=== PATIENT | female | born 1980 | race Caucasian/White ===

== ENCOUNTER 2020-12-01 16:51 | Emergency (ER) | payer MEDICAID, SELFPAY ==
[2020-12-01 17:03] VITALS: BP 145/96; PULSE 108; TEMP 36.7; O2SAT 100
[2020-12-01 17:08] VITALS: RESP 14
--- NOTE | 2020-12-01 17:19 | W.ED.GENAD ---
Discharge Plan Disposition Patient Disposition: HOME Condition: Stable Discharge Details Clinical Impression: Sinusitis ED Provider: Joseph Owens Home Meds and New Rx's Prescriptions: New amoxicillin-pot clavulanate [Augmentin] 875-125 mg tablet 1 tab PO BID Qty: 14 RF: 0 Continued Vyvanse 50 MG capsule 50 mg PO DAILY RF: 0 Discharge Instructions Instructions: Sinusitis (ED) Additional Instructions: you can try taking over the counter allergy relief medicine as well that might help such as zyrtec and benadryl if symptoms continue in a week follow up with your primary care provider if you feel more ill, have fevers or difficulty breathing return to the emergency department Medical Decision Making 40 yo female comes in with 2 weeks of sinus pressure and irritation in his nose and ear pressure. She denies fevers, dyspnea, vision changes. She states it feels like prior sinus infections she has. She has pain with percussion over the maxillary sinuses, normal tm's and external auditory canals, eomi, perrl, no vision changes, normal neurological exam. Her symptoms seem most consistent with sinusitis and given over 10 days of symptoms will start augmentin. no findings on history or exam to suggest cavernous sinus thrombosis. Advised to f/u with pcp and return precautions given Differential Diagnosis Differential Diagnosis: sinusitis, viral uri HPI General Mode of arrival: ambulatory. Date/Time Provider Initiated Documentation: 12/01/20 17:08. Limitations to Documentation: no limitations. Information obtained by: patient. History of Present Illness 40 year old F presents to the emergency department with the chief complaint of sinus pressure, described as moderate, Quality is described as aching, and is localized to the face. Patient reports no radiation. and it has been constant. No relieving factors improve symptom(s), No exacerbating factors reported . Patient did receive the following treatments prior to arrival, none Related Data Home Medications Medication Instructions Recorded Confirmed Vyvanse 50 mg PO DAILY tab-cap 03/21/14 12/01/20 amoxicillin-pot clavulanate 1 tab PO BID #14 tab 12/01/20 [Augmentin] Previous Rx's Medication Instructions Recorded amoxicillin-pot clavulanate 1 tab PO BID #14 tab 12/01/20 [Augmentin] Allergies Allergy/AdvReac Type Severity Reaction Status Date / Time No Known Allergies Allergy Unverified 12/01/20 17:17 General Stated Complaint: GenMedical JI: 3 Review of Systems All systems reviewed & are unremarkable except as noted in HPI and below Constitutional Constitutional: Denies chills, Denies fever(s) and Denies weakness Cardiovascular Cardiovascular: Denies chest pain and Denies dyspnea Respiratory Respiratory: Denies cough and Denies dyspnea Gastrointestinal Gastrointestinal: Denies abdominal pain, Denies nausea and Denies vomiting Genitourinary Genitourinary: Denies dysuria Musculoskeletal Musculoskeletal: Denies joint swelling Integumentary/Breasts Skin/Breast: Denies rash Neurologic Neurologic: Denies weakness [facility] Surgical History (Updated 12/14/17 @ 14:36 by [employer] [place]) Ligation of fallopian tube Social History Smoking/Tobacco Use Status: Current every day Tobacco Type: cigarettes Smoking risk assessment performed?: Yes Alcohol Intake: current Alcohol Intake frequency: 0-2 drinks per day Alcohol type: hard liquor Drug use: Never Substance use type: does not use Do you feel safe at home: Yes Do you feel safe in your relationship?: Yes Exam Const General: no acute distress Orientation: alert HENMT Head: normal to inspection Ears: external ears normal General nose exam: external nose normal Mouth: moist mucous membranes Eyes General: appearance normal, both eyes and all related structures Neck Neck: normal visual inspection Resp Effort & Inspection: normal respiratory effort and able to speak in complete sentences Cardio Rate: regular rate Skin General skin exam: no rashes or lesions noted Neuro General: patient alert and patient oriented x3 Extrem General: normal to inspection Psych Mental Status: mental status grossly normal Course Vital Signs Vital signs: Vital Signs Temperature 36.7 C 12/01/20 17:03 Pulse 108 H 12/01/20 17:03 Blood Pressure 145/96 H 12/01/20 17:03 Pulse Oximetry 100 12/01/20 17:03 Temperature 36.7 C 12/01/20 17:03 Temperature Source Tympanic 12/01/20 17:03 Pulse 108 H 12/01/20 17:03 Respiratory Rate 14 12/01/20 17:08 Respiratory Effort Non-Labored 12/01/20 17:08 Respiratory Depth Normal 12/01/20 17:08 Respiratory Pattern Normal 12/01/20 17:08 Blood Pressure 145/96 H 12/01/20 17:03 Blood Pressure Position Sitting 12/01/20 17:03 Pulse Oximetry 100 12/01/20 17:03 Oxygen Delivery Method Room Air 12/01/20 17:03 Oxygen Flow Rate 0 12/01/20 17:03 Pain Level 4 12/01/20 17:03 PAWSS Have you Been Recently Intoxicated or Drunk Within the Last 30 days?: No Have you Ever Experienced Previous Episodes of Alcohol Withdrawal?: No Have you ever Experienced Withdrawal Seizures?: No Have you ever Experienced Delirium Tremens(DT)s?: No Have you ever undergone Alcohol Rehabilitation Treatment (i.e, inpt ot outpatient treatment programs)?: No Have you ever Experienced Blackouts?: No Have you ever Combined Alcohol with other Downers within the last 90 days?: No Have you ever Combined Alcohol with any other Substance of Abuse during the last 90 days?: No Positive Blood Alcohol level on Presentation? [PCS.BAL]: No Evidence of Increased Autonomic Activity (i.e. HR>120, tremor, sweating, agitation, nausea)?: No Result: 0
[2020-12-01 17:28] VITALS: BP 145/96; PULSE 108; RESP 17; TEMP 36.7; O2SAT 100
== END 2020-12-01 17:23 | disposition home or self-care (01) ==
LOC: ER 17:31
PROVIDERS: Emergency Provider Emergency Medicine
DX: J01.00 Acute maxillary sinusitis, unspecified (principal)
CPT/HCPCS: 99283; 99282

== ENCOUNTER 2021-07-31 10:23 | Emergency (ER) | payer MEDICAID, SELFPAY ==
[2021-07-31 10:32] VITALS: PULSE 89; RESP 18; TEMP 37.1; O2SAT 100
[2021-07-31 10:41] VITALS: BP 172/103
--- NOTE | 2021-07-31 10:46 | ED.GENADUL_ITS ---
Discharge Plan Disposition Patient Disposition: HOME Condition: Stable Discharge Details Clinical Impression: Sinusitis Primary Care Provider: Madelin Holbrook ED Provider: Joseph Owens Home Meds and New Rx's Prescriptions: New amoxicillin-pot clavulanate 875-125 mg tablet 1 tab PO BID Qty: 14 0RF Continued Vyvanse 50 MG capsule 50 mg PO DAILY Discontinued amoxicillin-pot clavulanate [Augmentin] 875-125 mg tablet 1 tab PO BID Qty: 14 0RF Discharge Instructions Instructions: Sinusitis (ED) Additional Instructions: you can continue using flonase and also try daily claritin or zyrtec if symptoms are not better within a week follow up with your primary care pr ovider if you feel more ill, have severe worsening pain or fevers return to the emergency department Stand Alone Forms: Work Release Medical Decision Making 40 yo female with no significant pmhx comes in with cc of sinus pressure and dry cough for 3 weeks and states it feels like a prior sinus infection. She denies fevers, chills, vision changes, difficulty breathing or swallowing. She localizes pressure to the maxillary sinuses. She appears well systemically, speaking in full sentences in no distress. No swelling of the face or rashes, e oral, perrl, normal tm's, normal external auditory canal, normal posterior pharynx, midline uvula and lungs are clear. Symptoms seem consistent with sinusitis and given she has had the symptoms for 3 weeks will treat with augmentin. She states she gets weekly covid tests at work so do not feel test today indicated as she has had two negative tests already with this. Advised if not improving to follow up with pcp and return precautions given Differential Diagnosis Differential Diagnosis: sinusitis, viral uri, covid HPI General Mode of arrival: ambulatory . Date/Time Provider Initiated Documentation: 07/31/21 10:27 . Limitations to Documentation: no limitations . Information obtained by: patient . History of Present Illness 40 year old F presents to the emergency department with the chief complaint of sinus pressure, described as moderate, Patient started experiencing this week(s) (3) and it has been constant. No relieving factors improve symptom(s), No exacerbating factors reported . Patient notes cough. Related Data Home Medications Medication Instructions Recorded Confirmed lisdexamfetamine 50 mg capsule 50 mg PO DAILY 03/21/14 12/01/20 (Vyvanse) amoxicillin 875 mg-potassium 1 tab PO BID #14 tabs 07/31/21 clavulanate 125 mg tablet Previous Rx's Medication Instructions Recorded amoxicillin 875 mg-potassium 1 tab PO BID #14 tabs 07/31/21 clavulanate 125 mg tablet Allergies Allergy/AdvReac Type Severity Reaction Status Date / Time No Known Allergies Allergy Unverified 12/01/20 17:17 General Stated Complaint: RespSymp JI: 4 Review of Systems All systems reviewed & are unremarkable except as noted in HPI and below Constitutional Constitutional: Denies chills, Denies fever(s) and Denies weakness ENT Ears, Nose, Mouth, and Throat: Denies change in voice Cardiovascular Cardiovascular: Denies chest pain and Denies dyspnea Respiratory Respiratory: Denies dyspnea Gastrointestinal Gastrointestinal: Denies abdominal pain, Denies nausea and Denies vomiting Integumentary/Breasts Skin/Breast: Denies rash Neurologic Neurologic: Denies weakness PFSH All Active Problems (Updated 07/31/21 @ 10:46 by Joseph Owens MD) Sinusitis (Acute) Surgical History (Updated 12/14/17 @ 14:36 by [employer] [place]) Ligation of fallopian tube Social History Smoking/Tobacco Use Status: Current every day Tobacco Type: cigarettes Smoking risk assessment performed?: Yes Alcohol Intake: current Alcohol Intake frequency: 0-2 drinks per day Alcohol type: hard liquor Drug use: Never Substance use type: does not use Do you feel safe at home: Yes Do you feel safe in your relationship?: Yes Exam Const General: no acute distress Orientation: alert [facility] Head: normal to inspection Ears: external ears normal General nose exam: external nose normal Mouth: moist mucous membranes Eyes General: appearance normal, both eyes and all related structures Neck Neck: normal visual inspection Resp Effort & Inspection: normal respiratory effort, able to speak in complete sentences and no audible wheezes Auscultation: clear to auscultation bilaterally Cardio Rate: regular rate Skin General skin exam: no rashes or lesions noted Neuro General: patient alert and patient oriented x3 Extrem General: normal to inspection Psych Mental Status: mental status grossly normal Course Vital Signs Vital signs: Vital Signs Temperature 37.1 C 07/31/21 10:32 Pulse 89 07/31/21 10:32 Respiratory Rate 18 07/31/21 10:32 Pulse Oximetry 100 07/31/21 10:32 Temperature 37.1 C 07/31/21 10:32 Temperature Source Tympanic 07/31/21 10:32 Pulse 89 07/31/21 10:32 Respiratory Rate 18 07/31/21 10:32 Respiratory Effort 07/31/21 10:41 Respiratory Depth Normal 07/31/21 10:41 Blood Pressure 172/103 H 07/31/21 10:41 Pulse Oximetry 100 07/31/21 10:32 Oxygen Delivery Method Room Air 07/31/21 10:32 Oxygen Flow Rate 0 07/31/21 10:32 Pain Level 4 07/31/21 10:32 PAWSS Have you Been Recently Intoxicated or Drunk Within the Last 30 days?: No Have you Ever Experienced Previous Episodes of Alcohol Withdrawal?: No Have you ever Experienced Withdrawal Seizures?: No Have you ever Experienced Delirium Tremens(DT)s?: No Have you ever undergone Alcohol Rehabilitation Treatment (i.e, inpt ot outpatient treatment programs)?: No Have you ever Experienced Blackouts?: No Have you ever Combined Alcohol with other Downers within the last 90 days?: No Have you ever Combined Alcohol with any other Substance of Abuse during the last 90 days?: No Positive Blood Alcohol level on Presentation? [PCS.BAL]: No Evidence of Increased Autonomic Activity (i.e. HR>120, tremor, sweating, agitation, nausea)?: No Result: 0
== END 2021-07-31 10:55 | disposition home or self-care (01) ==
PROVIDERS: Emergency Provider Emergency Medicine; PCP Physician Assistant Medical
DX: J01.80 Other acute sinusitis (principal)
CPT/HCPCS: 99283